=== PATIENT | male | born 1970 | race Hispanic/Latino ===

== ENCOUNTER 2019-05-17 20:04 | Inpatient (IN) | payer OTHER ==
[2019-05-17 23:31] VITALS: BMI 31.6
[2019-05-18] MEDS: Acetaminophen 325 MG TAB PO PRN ×4 (00:55→17:32)
--- NOTE | 2019-05-18 03:45 | HP ---
PRIMARY CARE DOCTOR: The patient has no PCP. CODE STATUS: Full code. TIME OF EVALUATION: 9:30 p.m. CHIEF COMPLAINT: Left-sided weakness and slurred speech. HISTORY OF PRESENT ILLNESS: This is a 48-year-old male patient, past medical history of no significant medical problems, came to the hospital after having left-sided weakness. The symptoms have been present on and off for the past week, however, since 6:00 a.m. today, the symptoms were not improving. Basically, the patient has left-sided weakness and being unable to put on his clothes. The patient has slurred speech, confusion, symptoms were severe. No clear triggers. No alleviating factors. No significant family history of these problems. Symptoms started suddenly at 6:00 a.m. this morning. REVIEW OF SYSTEMS: Unable to fully obtain. The patient is confused. Information has been gathered from the patient and family. CONSTITUTIONAL: The patient has generalized weakness, loss of appetite for the past week. RESPIRATORY: No cough, sputum production, or shortness of breath. CARDIOVASCULAR: No chest pain. GASTROINTESTINAL: No nausea, no vomiting, or abdominal pain. WEB SERVICES PROFESSIONAL: The patient has confusion, left-sided weakness as discussed in HPI. GENITOURINARY: No burning on urination. EXTREMITIES: No leg swelling. All other systems were reviewed and negative except for the findings mentioned above. PAST MEDICAL HISTORY: Negative. FAMILY HISTORY: Negative. PAST SURGICAL HISTORY: Negative. SOCIAL HISTORY: The patient drinks on a daily basis around 10 beers per day. No drug use. No smoking history. No history of delirium tremens in the past. KNOWN ALLERGIES: No known drug allergies. REPORTED MEDICATIONS: None. PHYSICAL EXAMINATION: VITAL SIGNS: On presentation, blood pressure 183/118 with heart rate 95, respiratory rate was 18, temperature 99.3. Pain was 7/10, oxygen saturation was 97% on room air. GENERAL APPEARANCE: The patient is alert, confused, unable to establish a simple conversation, not in acute distress. HEENT: Eyes, normal conjunctivae. Moist oral mucosa. Anicteric. No JVD. RESPIRATORY: Bilateral air entry. No rales. No wheezes. Symmetric expansion. CARDIOVASCULAR: Normal rate, regular rhythm. No murmurs. No gallop. No edema. ABDOMEN: Soft, normal bowel sounds. MUSCULOSKELETAL: Baseline range of motion and strength. SKIN: Warm, intact. No pallor. No rash. No redness. Capillary refill seems to be intact. NEURO: The patient has left-sided weakness, slurred speech, the patient has the slow mentation. PSYCH: Unable to fully explore, suboptimal judgment. IMAGING: EKG was reviewed. The patient has normal sinus rhythm, rate within normal limits. No acute findings for any other specific disease. Brain CT was done. The patient has abnormal area of low attenuation in the left posterior, right parietal lobe which is nonspecific. This is not typical of infarct and although lesion should be excluded, recommended further evaluation with MRI of the brain. The CT [place] [facility] [place] [facility] with contrast showed prominent atherosclerotic calcification in the cavernous portion of both ICAs. The patient appeared to be producing hemodynamically significant stenosis bilaterally, decreased M2 and M3 branches of the right, consistent with right M2 occlusion. LABORATORY DATA: Reviewed. The patient has white count 9.3, hemoglobin 15.6, MCV 88, platelet count 155. Coagulation was negative. Chemistry; sodium 138, potassium 4.0, chloride 101, carbon dioxide 27, anion gap 14, BUN 8, creatinine 0.9, GFR 89, glucose 236. LFTs were negative. CK 22, troponin was mildly elevated at 0.04. Albumin was normal. ASSESSMENT AND PLAN: The patient will be placed in the hospital with following medical problems. 1. Acute new onset left-sided weakness with slurred speech. The patient is very young to have a stroke, it should be atypical. Therefore, another pathologies are being ruled in/out including brain mass. We will do MRI in the morning and further workup will be planned depending on the results. Otherwise, we will continue with stroke protocol and neuro checks frequently. Seizure precautions. 2. The patient has a strong history of alcohol abuse with 8-10 beers on a daily basis. We will watch him for delirium tremens. This might add up more confusing findings to the patient's history who is already presenting with altered mental status from possible mass, something we will need to take into consideration in a couple days for now if delirium tremens symptom appear. 3. Deep venous thrombosis prophylaxis. Job ID: [id number]
[2019-05-18 04:53] LABS: #Lymphocytes 1.9 thou/uL (1.20-3.40); #Monocytes 0.6 thou/uL (0.11-0.59); #Neutrophils 6.2 thou/uL (1.40-6.50); %Basophils 0.1 % (0.0-1.0); %Eosinophils 0.4 % (0.0-10.0); %Lymphocytes 22.1 % (21.0-51.0); %Monocytes 6.3 % (0.0-10.0); %Neutrophils 71.2 % (42.0-75.0); Hemoglobin 15.2 g/dL (14.0-18.0); Mean Corpuscular HGB CONC 33.6 g/dL (32.0-36.0); Mean Corpuscular Volume 89.3 fL (78.0-98.0); Mean Platelet Volume 9.3 fL (7.4-10.4); Platelet Count 146 thou/uL (130-400); RBC Distribution Width 11.7 % (11.5-14.5); Red Blood Cell (RBC) Count 5.06 mill/uL (4.70-6.10); White Blood Cell (WBC) Count 8.7 thou/uL (4.8-10.8)
[2019-05-18 05:17] LABS: Anion Gap 11 mmol/L (10-20); BUN (Urea Nitrogen) 7 mg/dL (8.9-20.6); Calc. Creatinine Clearance 169 mL/min (70-130); Calcium 9.2 mg/dL (7.8-10.44); Carbon Dioxide 24 mmol/L (22-29); Cardiac Risk 4.7 (Less than 4.5); Chloride 98 mmol/L (98-107); Cholesterol 212 mg/dl (< 200 Desired); Estimated GFR-MDRD Greater than 90; Glucose 250 mg/dL (70-105); HDL Cholesterol 45 mg/dL (>60 Neg Risk); LDL Cholesterol, Calculated 136 mg/dL; Potassium 3.4 mmol/L (3.5-5.1); Sodium 130 mmol/L (136-145); Triglycerides 153 mg/dL (Less than 150)
--- NOTE | 2019-05-18 08:14 | PDOC.HOSPP ---
- Subjective Subjective: speech improved, L sided strength improved - Objective Vital Signs & Weight: Vital Signs (12 hours) Temp Pulse Resp BP Pulse Ox 05/18/19 07:54 99.3 F 81 20 176/89 H 98 05/18/19 04:00 100.1 F H 88 16 166/88 H 95 05/17/19 23:00 100.4 F H 88 18 193/95 H 99 Weight Weight 201 lb 9 oz I&O: 05/17/19 05/18/19 05/19/19 06:59 06:59 06:59 Intake Total 480 Output Total 300 Balance 180 Result Diagrams: 05/18/19 04:42 05/18/19 04:42 ROS - Review of Systems All systems: All other ROS were reviewed and found negative. - Medication Medications: Active Medications Generic Name Dose Route Start Last Admin Trade Name Freq PRN Reason Stop Dose Admin Acetaminophen 650 mg 05/18/19 00:29 05/18/19 05:41 Tylenol PO 650 mg Q4H PRN Administration Fever > 101 - Exam Neck: no JVD Heart: RRR, no murmur Respiratory: CTAB, no wheezes, no rales Gastrointestinal: soft, non-tender, normal bowel sounds Extremities: no edema Neurological: hemiplegia Hosp A/P (1) CVA (cerebral vascular accident) Code(s): I63.9 - CEREBRAL INFARCTION, UNSPECIFIED Status: Acute Qualifiers: CVA mechanism: thrombosis Precerebral and cerebral artery: middle cerebral artery Laterality of affected vessel: right Qualified Code(s): I63.311 - Cerebral infarction due to thrombosis of right middle cerebral artery (2) Hyponatremia Code(s): E87.1 - HYPO-OSMOLALITY AND HYPONATREMIA Status: Acute (3) DM type 2 (diabetes mellitus, type 2) Status: Acute Qualifiers: Diabetes mellitus marine drafter insulin use: without care home use Diabetes mellitus complication status: without complication Qualified Code(s): E11.9 - Type 2 diabetes mellitus without complications (4) Dyslipidemia (high LDL; low HDL) Code(s): E78.5 - HYPERLIPIDEMIA, UNSPECIFIED Status: Acute - Plan plan discussed w/ family, PT/OT, DVT proph w/lovenox MRI pending. start ASA, statin. accu/ss/ HgA1c. PT/OT
[2019-05-18 08:24] LABS: Hemoglobin A1c 10.3 % (4.0-6.0)
[2019-05-18] MEDS: Aspirin 325 MG TAB PO SCH (08:33)
[2019-05-18] MEDS ORDERED: Enoxaparin Sodium 40 MG/0.4 ML SYRINGE SC SCH (09:00)
--- NOTE | 2019-05-18 09:29 | MRI ---
BRAIN MRI WITHOUT CONTRAST: Date: 05/18/2019 COMPARISON: None. HISTORY: Left-sided weakness, assess for acute infarction. FINDINGS: Review of the diffusion weighted imaging demonstrates scattered areas of restricted diffusion on the right. This includes foci of restricted diffusion along the lateral margin of the right putamen. There are foci of restricted diffusion involving the periventricular white matter on the right adjace nt to the frontal horn of the right lateral ventricle, likely involving the right caudate head. In addition, there are scattered foci of restricted diffusion present involving the superior lateral asp ect of the right frontal lobe and right frontoparietal region. The gradient echo imaging demonstrates linear areas of blooming artifact in the superior lateral right frontal region and the p osterior right frontoparietal region suggesting small volume hemorrhage associated with infarctions in this region. Correlation with CT examination is suggested. There is no evidence for midline shift or mass effect. The arterial flow voids at the axial level of the skull base appear grossly unremarkable on the T2-we ighted imaging. The imaged paranasal sinuses and mastoid air cells appear grossly unremarkable. There is a focus of restricted diffusion consistent with acute infarction also noted within the poste rior temporal occipital region on the right. The areas of acute infarction demonstrate increased T2 signal on the basis of cytotoxic edema. There is an old lacunar infarction involving the periventricular white matter/deep white matter on th e left. Regional bone marrow signal intensity appears within normal limits. IMPRESSION: Multifocal infarction on the right as detailed above. Some of the areas of acute infarction demonstra te linear blooming artifact suggesting small volume associated hemorrhage. Recommend correlation with CT examination. CODE T Transcribed Date/Time: 05/18/2019 9:57 AM
[2019-05-18] MEDS: Amlodipine 5 MG TAB PO SCH (12:21)
--- NOTE | 2019-05-18 15:46 | RAD ---
PA AND LATERAL VIEWS CHEST: HISTORY: Fever. FINDINGS: The heart size is borderline. No focal areas of consolidation, pneumothoraces, thuy pulmonary edema , or pleural effusions are seen. There are degenerative changes in the spine. IMPRESSION: No acute process. POS: OFF
--- NOTE | 2019-05-18 16:17 | CON ---
DATE OF CONSULTATION: 05/18/2019 REQUESTING PHYSICIAN: Guille Maria MD CHIEF COMPLAINT: Headache and left body paresthesias. HISTORY OF PRESENT ILLNESS: The patient is a 48-year-old man, who essentially is Lithuanian-speaking only, one of his family members who fluently bilingual assisted in translation and provided some of the history. The patient essentially never goes to the doctor, even though he has been told in the past that he has "prediabetes." He has had at least 3 episodes over the last week or so of left body paresthesias, at least one of which was associated with some left arm weakness as he dropped a soft drink that he was holding in that hand. Episodes on Thursday of last week in this past Thursday, lasted for an hour or two and more associated with left arm paresthesias. On Thursday, he also had left lower extremity paresthesias. Starting early yesterday morning, he had a bad headache and yesterday afternoon when he went to take some Tylenol, he choked on a pill in the water, which he was swallowing it in addition having left-sided paresthesias and his family insisted he go to the hospital. Today, the patient feels that he is back to about baseline, although his family agrees that his left face seems to be drooping a little bit. PAST MEDICAL HISTORY: As above. MEDICATIONS: He takes no medications on a regular basis. ALLERGIES: HE HAS NO KNOWN DRUG ALLERGIES. SOCIAL HISTORY: Estimates of his daily drinking range from 6 to over 10 alcoholic beverages a day. His family indicates that he has never had seizures or other overt signs of withdrawals, but that he does start to get rather agitated if he goes 3 days without alcohol. He denies smoking. REVIEW OF SYSTEMS: Negative for any previous such episodes. Negative for any chest pain or shortness of breath. PHYSICAL EXAMINATION: GENERAL: He is in no distress. HEENT: There is some white flattening of the left nasolabial fold and downward droop of the left corner of his mouth. EXTREMITIES: Right arm testing was difficult because of some discomfort associated with an antecubital IV, but upper and lower extremity strength seemed grossly normal. NECK: He has bilateral carotid bruits. CHEST: Clear to auscultation. He has a regular rate and rhythm. ABDOMEN: Soft and nontender. VITAL SIGNS: His last temperature around noon time today was 99.7. He had a temperature of 100.4 on admission to the [facility]. Heart rates have been in the 70s and 80s. Blood pressure has been about 175 to 195 over about 80 to 95. LABORATORY EXAM: Electrolytes were normal. Glucose was 226, BUN 8, creatinine 0.91. Followup chemistries this morning after yesterday's CTA, the BUN of 7 and creatinine 0.7. LFTs were normal. Calcium was 8.9, albumin 4.1, CK-MB was 0.8, troponin was 0.040. Triglycerides on fasting labs this morning were 153, cholesterol was 212 with LDL 136 and HDL 45. Hemoglobin A1c was 10.3. Hemoglobin was 15.6, hematocrit 46.2, MCV 88.1, white count was 8.3, platelets 155,000. PT was 14.1, INR 1.1, and PTT 30.8. His head CT report describes some low attenuation in the posterior right parietal lobe that was felt to be atypical for infarct. MRI showed right multifocal right-sided infarcts in the right putamen, periventricular white matter adjacent frontal horn of the lateral ventricle, inferolateral right frontal lobe in the right frontoparietal region and changes suggesting some nesha-infarct hemorrhage as well as an area in the posterior temporal occipital region on the right with some edema. CT angiography shows some plaque in his suggestive of bilateral carotid stenosis in the cervical region. The report also describes borderline stenosis in both ICA in the cavernous portion, although that is much harder for me to appreciate the CTA has several areas that are affected by motion artifact. There are some of the pictures that were in good focus and highly suggestive of significant stenosis, other areas that are a little blurry and then there are other areas that are just absolutely uninterpretable. IMPRESSION AND RECOMMENDATIONS: In all likelihood, the patient has had right-sided infarcts due to right-sided cervical carotid disease. He may have asymptomatic left-sided disease as some examiner's elicited a history of dysarthria. It is even conceivable that he had speech center TIAs rather than just simply some oropharyngeal or mental status cause of slurred speech. The patient's baseline BUN and creatinine were normal, and a followup study the day after CTA also was normal. I think the most straightforward way to address this rather than trying to do invasive arteriography or rely on suboptimal studies just to simply repeat the CTA when presumably the patient is better able to cooperate with the exam. Carotid ultrasonography may also provide complimentary information to fill in some of the gaps, it may be left by his CT studies. The patient's blood sugars will need to be brought under better control. I would like to make sure that he is not getting an infectious process and I would be desirable to avoid DTs given the suggestion of nesha-infarct hemorrhage and edema. It is probably worthwhile giving the patient some time to heal from his stroke before subjecting him to endarterectomy should imaging studies point that way. Job ID: [id number]
--- NOTE | 2019-05-18 17:03 | ULT ---
BILATERAL CAROTID DUPLEX ULTRASOUND: 05/18/19 HISTORY: Carotid bruits. CVA. TECHNIQUE: Hairston scale ultrasound with color flow and spectral Doppler imaging of the extracranial carotid artery system is performed bilaterally. There is plaque formation on both sides. Flow could not be obtained in the distal right ICA. The peak systolic velocity in the right ICA measures 178 cm/s with an end diastolic velocity of 70 cm /s and systolic ratio of 2.0. The peak systolic velocity in the left ICA measures 76 cm/s with an end diastolic velocity of 37 cm/s and systolic ratio of 1.0. Flow in both vertebral arteries remains antegrade. IMPRESSION: Moderate (50-69%) stenosis involving the right ICA. POS: OFF
[2019-05-18] MEDS: Atorvastatin Calcium 40 MG TAB PO SCH (21:28)
[2019-05-19] MEDS: hydrALAZINE 20 MG/ML VIAL SLOW IVP PRN ×3 (00:17→20:13)
[2019-05-19] MEDS ORDERED: HumaLOG 300 UNITS/3 ML VIAL SC PRN (02:53)
[2019-05-19] MEDS ORDERED: Dextrose 5% in Water 1,000 ML IV PRN (02:53)
[2019-05-19] MEDS ORDERED: Dextrose 50% Abboject 50 ML SYRINGE SLOW IVP PRN (02:53)
[2019-05-19] MEDS: Acetaminophen 325 MG TAB PO PRN ×2 (04:07→08:52)
[2019-05-19 05:56] LABS: #Eosinphils 0.1 thou/uL (0.0-0.7); #Lymphocytes 2.3 thou/uL (1.20-3.40); #Monocytes 0.6 thou/uL (0.11-0.59); #Neutrophils 4.4 thou/uL (1.40-6.50); %Basophils 0.2 % (0.0-1.0); %Lymphocytes 31.5 % (21.0-51.0); %Monocytes 7.8 % (0.0-10.0); %Neutrophils 59.4 % (42.0-75.0); Hemoglobin 16.7 g/dL (14.0-18.0); Mean Corpuscular HGB CONC 35.7 g/dL (32.0-36.0); Mean Corpuscular Volume 89.7 fL (78.0-98.0); Mean Platelet Volume 9.9 fL (7.4-10.4); Platelet Count 143 thou/uL (130-400); RBC Distribution Width 11.6 % (11.5-14.5); Red Blood Cell (RBC) Count 5.22 mill/uL (4.70-6.10); White Blood Cell (WBC) Count 7.4 thou/uL (4.8-10.8)
[2019-05-19] MEDS: HumaLOG 300 UNITS/3 ML VIAL SC PRN ×3 (06:05→17:24)
[2019-05-19 06:14] LABS: Anion Gap 11 mmol/L (10-20); BUN (Urea Nitrogen) 8 mg/dL (8.9-20.6); Calc. Creatinine Clearance 157 mL/min (70-130); Calcium 9.7 mg/dL (7.8-10.44); Carbon Dioxide 27 mmol/L (22-29); Chloride 99 mmol/L (98-107); Estimated GFR-MDRD Greater than 90; Glucose 216 mg/dL (70-105); Potassium 3.8 mmol/L (3.5-5.1); Sodium 133 mmol/L (136-145)
--- NOTE | 2019-05-19 08:20 | CT ---
CT arteriogram neck with IV contrast and 3-D imaging HISTORY: Abnormal sonogram. Carotid stenosis. Vascular disease. CVA. FINDINGS: Normal branching of the great vessels at the aortic arch with mild arterial calcification. Good flow into each carotid and vertebral system. At the right carotid bifurcation, there is mild calcified and prominent noncalcified plaque. Over a l ength of 1.5 cm, there is very severe narrowing of the proximal to mid right cervical internal carotid artery, greater than 90%. Remainder of the internal carotid artery shows good flow and calibe r. On the left, there is mild calcified and moderate noncalcified plaque within the proximal ICA. Stenos is is less than 50%. IMPRESSION: Atherosclerosis with significantly severe stenosis of the proximal right internal carotid artery, estimated at greater than 90%. Mild stenosis on the left, less than 50%.
--- NOTE | 2019-05-19 08:29 | PDOC.HOSPP ---
- Subjective Subjective: MACHUCA, still weak on left side - Objective Vital Signs & Weight: Vital Signs (12 hours) Temp Pulse Resp BP Pulse Ox 05/19/19 07:37 98.5 F 81 18 183/91 H 97 05/19/19 04:00 98.3 F 78 18 154/91 H 97 05/19/19 01:23 171/80 H 05/19/19 00:17 83 05/18/19 23:47 99.0 F 83 18 184/88 H 97 05/18/19 21:30 97 Weight Weight 201 lb 9 oz I&O: 05/18/19 05/19/19 05/20/19 06:59 06:59 06:59 Intake Total 480 720 Output Total 300 Balance 180 720 Result Diagrams: 05/19/19 05:02 05/19/19 05:02 Additional Labs: Accuchecks 05/19/19 05:56 POC Glucose 205 H Radiology Reviewed by me: Yes (R ICA stenosis) ROS - Review of Systems All systems: All other ROS were reviewed and found negative. - Medication Medications: Active Medications Generic Name Dose Route Start Last Admin Trade Name Freq PRN Reason Stop Dose Admin Acetaminophen 650 mg 05/18/19 00:29 05/19/19 04:07 Tylenol PO 650 mg Q4H PRN Administration Fever > 101 Amlodipine Besylate 2.5 mg 05/18/19 09:00 05/18/19 12:21 Norvasc PO 2.5 mg DAILY JOSE Administration Aspirin 325 mg 05/18/19 09:00 05/18/19 08:33 Aspirin PO 325 mg DAILY JOSE Administration Atorvastatin Calcium 40 mg 05/18/19 21:00 05/18/19 21:28 Lipitor PO 40 mg HS JOSE Administration Hydralazine HCl 10 mg 05/18/19 23:42 05/19/19 00:17 Apresoline SLOW IVP 10 mg Q4H PRN Administration BP 160/100 Insulin Human Lispro 0 units 05/19/19 02:53 05/19/19 06:05 Humalog SC 3 unit .MILD SLIDING SCALE PRN Administration Mild Correctional Scale - Exam Neck: no JVD Heart: RRR, no murmur Respiratory: CTAB Gastrointestinal: soft, non-tender, normal bowel sounds Extremities: no edema Neurological: facial droop, hemiplegia Hosp A/P (1) CVA (cerebral vascular accident) Code(s): I63.9 - CEREBRAL INFARCTION, UNSPECIFIED Status: Acute Qualifiers: CVA mechanism: thrombosis Precerebral and cerebral artery: middle cerebral artery Laterality of affected vessel: right Qualified Code(s): I63.311 - Cerebral infarction due to thrombosis of right middle cerebral artery (2) Hyponatremia Code(s): E87.1 - HYPO-OSMOLALITY AND HYPONATREMIA Status: Acute (3) DM type 2 (diabetes mellitus, type 2) Status: Acute Qualifiers: Diabetes mellitus mcfp insulin use: without intermodal truck driver use Diabetes mellitus complication status: without complication Qualified Code(s): E11.9 - Type 2 diabetes mellitus without complications (4) Dyslipidemia (high LDL; low HDL) Code(s): E78.5 - HYPERLIPIDEMIA, UNSPECIFIED Status: Acute (5) Carotid stenosis Code(s): I65.29 - OCCLUSION AND STENOSIS OF UNSPECIFIED CAROTID ARTERY Status : Acute Qualifiers: Laterality: right Qualified Code(s): I65.21 - Occlusion and stenosis of right carotid artery - Plan MACHUCA, adverse neuro findings. CT brain, hold asa.Uncottrolled DM 2- cont accu/ss/ start metformin in 2-3 days{ post iv contrast}
[2019-05-19] MEDS: Amlodipine 5 MG TAB PO SCH (08:53)
[2019-05-19] MEDS: Aspirin 325 MG TAB PO SCH ×2 (10:29→12:51)
--- NOTE | 2019-05-19 13:09 | CT ---
CT BRAIN NONCONTRAST: DATE: 05/19/19 TIME: 1152 HOURS HISTORY: 48-year-old male with acute cerebral infarction. Possibility of hemorrhage. COMPARISON: Noncontrast MRI of 05/18/19. FINDINGS: There is effacement of a few sulcal markings at the right upper cerebral convexity, associated with s ubtle, mild hypodensity and mild hyperdensity. Some of this represents mild cortical edema. Review of the gradient echo sequence of 05/18/19 MRI demonstrates curvilinear, gyriform blooming artifact in t his area, including right middle frontal gyrus and right postcentral gyrus of the upper frontal and p arietal lobes, respectively. The morphology is consistent with clot within superficial cortical veins . Therefore, the small right parieto-occipital cerebral cortical infarction demonstrated on yesterday 's MRI (and demonstrated by subtle heterogeneous slight hypodensity on today's CT) would be consisten t with a venous infarction. There is a linear-shaped old lacunar infarction of the left basal ganglia that also involves a small portion of the left caudate body. There is a tiny old lacunar infarction in the head of the right cau date nucleus. Ventricles are normal in size and configuration. No mass effect or midline shift. Many of the lateral mid right parietal gyri have superficial cortical subtle mild hyperdensities, whi ch is questionable for petechial hemorrhage. No definite hemorrhage was demonstrated in this location on yesterday's MRI. No other potential hemorrhage is visualized. Calvarium is intact. IMPRESSION: 1. Findings at the right upper cerebral convexity that are evidence for superficial cortical venous thrombosis. 2. Small focus of edema at right parieto-occipital junction is probably an acute/subacute venous inf arction. However, follow-up with MRI of the brain with and without contrast is recommended in 3 months to rule out the possibility of an unrelated neoplasm in this location as an alternative diagnosis. 3. Subtle finding of gyriform, thin, mild cortical hyperdensity of right parietal region, questionab le for petechial superficial cortical hemorrhage. 4. No evidence of large intracranial hemorrhage. 5. Old lacunar infarctions of left corpus striatum and right caudate head. 6. No mass effect or midline shift. JN Zoey POS: CET
--- NOTE | 2019-05-19 19:05 | PDOC.EVN ---
Event Note - Event Note Event Note: no evedense for ICH post CVA on CT- cont ASA
[2019-05-19] MEDS: Atorvastatin Calcium 40 MG TAB PO SCH (20:12)
--- NOTE | 2019-05-19 23:17 | CON ---
DATE OF CONSULTATION: 05/19/2019 CONSULTING PHYSICIAN: Hospitalist Services. IMPRESSION: 1. Right MCA infarct. 2. Right internal carotid stenosis of 90%. PLAN: Maximum medical therapy until endarterectomy was performed in a month. HISTORY OF PRESENT ILLNESS: Mr. Rizzo is a 48-year-old man, who came in with complaints of left-sided weakness and numbness. His symptoms have steadily improved since admission. His workup revealed a high-grade stenosis of the left internal carotid artery around 90%. He was re-imaged today due to some fluctuating symptoms. There was some minimal edema associated with the area of infarct. CTA continued to show an 80% to 90% right carotid stenosis. CT surgery is elected to hold off on endarterectomy for about a month. PAST MEDICAL HISTORY: Otherwise negative. SOCIAL HISTORY: Positive for alcohol use. FAMILY HISTORY: Noncontributory. MEDICATIONS: Medication list was reviewed. REVIEW OF SYSTEMS: 10-system review of systems is otherwise negative. PHYSICAL EXAMINATION: GENERAL: He is mildly overweight, middle-aged man, lying in bed, in no acute distress. VITAL SIGNS: Have been stable with a pulse rate of 94 and sinus rhythm. HEENT: Pupils are equal and reactive. Conjunctivae clear. Oropharynx clear. NECK: Supple. EXTREMITIES: No cyanosis or edema. NEUROLOGIC: He was alert and cooperative. Cranial nerves appear to be intact other than subjective sensory loss on the left. Motor exam showed good strength in all 4 extremities. There was subjective sensory loss in the left arm and leg. He can walk independently. No abnormal movements were seen. SUMMARY: Middle-aged man with high-grade carotid stenosis and subsequent thromboembolic event, which symptomatically is improving. I agree with the game plan. Job ID: [id number]
[2019-05-20 05:07] LABS: #Eosinphils 0.1 thou/uL (0.0-0.7); #Lymphocytes 2.2 thou/uL (1.20-3.40); #Monocytes 0.6 thou/uL (0.11-0.59); #Neutrophils 4.8 thou/uL (1.40-6.50); %Basophils 0.2 % (0.0-1.0); %Eosinophils 0.9 % (0.0-10.0); %Lymphocytes 28.8 % (21.0-51.0); %Monocytes 7.4 % (0.0-10.0); %Neutrophils 62.8 % (42.0-75.0); Hemoglobin 16.3 g/dL (14.0-18.0); Mean Corpuscular HGB CONC 34.3 g/dL (32.0-36.0); Mean Corpuscular Hemoglobin 30.7 pg (27.0-31.0); Mean Corpuscular Volume 89.5 fL (78.0-98.0); Mean Platelet Volume 9.4 fL (7.4-10.4); Platelet Count 148 thou/uL (130-400); RBC Distribution Width 11.7 % (11.5-14.5); Red Blood Cell (RBC) Count 5.31 mill/uL (4.70-6.10); White Blood Cell (WBC) Count 7.7 thou/uL (4.8-10.8)
[2019-05-20 05:20] LABS: Anion Gap 13 mmol/L (10-20); BUN (Urea Nitrogen) 11 mg/dL (8.9-20.6); Calc. Creatinine Clearance 157 mL/min (70-130); Calcium 9.5 mg/dL (7.8-10.44); Carbon Dioxide 23 mmol/L (22-29); Chloride 101 mmol/L (98-107); Estimated GFR-MDRD Greater than 90; Glucose 195 mg/dL (70-105); Potassium 3.5 mmol/L (3.5-5.1); Sodium 133 mmol/L (136-145)
[2019-05-20] MEDS: HumaLOG 300 UNITS/3 ML VIAL SC PRN ×2 (05:21→11:23)
[2019-05-20] MEDS: Acetaminophen 325 MG TAB PO PRN (07:18)
[2019-05-20] MEDS ORDERED: Aspirin 81 mg Enteric Coated Tablet PO SCH (09:00)
[2019-05-20] MEDS ORDERED: Clopidogrel Bisulfate 75 MG TAB PO SCH (09:00)
[2019-05-20] MEDS: Amlodipine 5 MG TAB PO SCH (09:08)
[2019-05-20 11:29] VITALS: BP 144/72; TEMP 98
--- NOTE | 2019-05-21 04:50 | DIS ---
DATE OF ADMISSION: 05/17/2019 DATE OF DISCHARGE: 05/20/2019 DIAGNOSES AT THE TIME OF DISCHARGE: 1. Right MCA infarction. 2. Right internal carotid stenosis of 90%. 3. New onset diabetes mellitus. 4. Hyponatremia, improved. 5. Hyperlipidemia. CONSULTANTS: 1. Guille Maria MD, Neurology Service. 2. Raad Leon MD, Cardiovascular Surgery. HOSPITAL COURSE: The patient is a 48-year-old male, who was admitted to the hospital with left-sided weakness and slurred speech. He did not have any significant past medical history of any problems. Apparently, he had symptoms on and off for approximately 1 week but since at some point, though symptoms were not improving, they were associated with some slurred speech, confusion, and patient was evaluated in the emergency room. His white count was 9.3, hemoglobin 15.6. Coagulation was negative. Sodium of 138, potassium 4.0, chloride 101, CO2 of 27, BUN 8, creatinine 0.9. His glucose was elevated at 236. LFTs were negative. CK was 22. Troponin was mildly elevated at 0.04. His EKG showed normal sinus rhythm, no acute findings. Brain CT was done and show abnormal area of the low attenuation in the left posterior right parietal lobe, which was nonspecific. This was not typical of infarct and followup evaluation with MRI of the brain was recommended. CT of the [place] angiogram was done with contrast, which showed prominent atherosclerotic calcification in the cavernous portion of both ICAs. There was a significant hemodynamic stenosis bilaterally. Apparently, the patient drinks 8-10 beers a day. MRI of the brain was performed and showed multifocal infarction on the right, since some of the areas of acute infarction demonstrated linear blooming artifacts suggesting small volume associated hemorrhage. CT of the brain was recommended, it was done and showed: 1. Findings at the right upper cerebral convexity that are evidence for superficial cortical venous thrombosis. 2. Small focus of edema at right parieto-occipital junction, which probably was an acute/subacute venous infarction. 3. Subtle findings of gyriform thin mild cortical hyperdensity of right parietal region, questionable for petechial superficial cortical hemorrhage. 4. No evidence of large intracranial hemorrhage. 5. Old lacunar infarction of the left corpus striatum and right caudate head. 6. No mass-effect or midline shift. Chest x-ray did not show any acute abnormalities. Carotid Doppler showed moderate 50% to 69% stenosis involving the right ICA and subsequently, CT angiogram was done which showed atherosclerosis with significantly severe stenosis of the proximal right internal carotid artery estimated at greater than 90% along with mild stenosis on the left less than 50%. The patient was seen by Dr. Maria for Neurology evaluation and by Dr. Leon for cardiovascular evaluation, and both of them agree to continue double anti-platelet therapy until he is going to have his endarterectomy done on the right side in 1 month. During this hospitalization, his hemoglobin A1c came back at 10.3, so he had glucose ranging from 177 to 213 during this hospitalization since he had some IV contrast, he was not started on any oral medications and he will be started on metformin for a couple of days after he is discharged from the hospital since he had IV contrast yesterday for his CT angiogram of the neck. His sodium is improved at 133 today. His glycemia is down to 177, with insulin coverage of Accu-Cheks before meals and at bedtime. He was seen by PT and OT, and speech therapist. They recommend to continue his treatments on an outpatient basis. He was seen and examined before he was discharged home. His blood pressure is 176/84, pulse is 80, temperature is 98.1, respirations 18, O2 saturation 95% on room air. He still has weakness in his left upper and lower extremity. He has left facial droop, but he is able to ambulate with some assistance. MEDICATIONS: At the time of discharge: 1. Metformin 500 mg twice a day. 2. Clopidogrel 75 mg once a day. 3. Atorvastatin 40 mg at bedtime. 4. Aspirin 81 mg once a day. 5. Amlodipine 2.5 mg once a day. FOLLOWUP: He is going to follow up with his primary care physician in 1 week. He will see Dr. Maria in [address] Leon, cardiovascular surgeon in 1 month for his right endarterectomy. ACTIVITIES: As tolerated. DIET: He will stay on 2000 calories ADA diet. FOLLOWUP: He will continue on outpatient basis with rehabilitation with PT, OT, and Speech. TIME SPENT: Discharge time is less than 30 minutes. Job ID: [id number]
== END 2019-05-20 12:58 | disposition home or self-care (01) | DRG 65 ==
LOC: ERS 20:04 → 2SE 20:42 → OBSVTOIN 20:42
PROVIDERS: ADMIT Hospitalist; ATTEND Hospitalist
DX: I63.311 Cerebral infarction due to thrombosis of right middle cerebral artery (principal); G81.94 Hemiplegia, unspecified affecting left nondominant side; E87.1 Hypo-osmolality and hyponatremia; R47.81 Slurred speech; F10.11 Alcohol abuse, in remission; E11.9 Type 2 diabetes mellitus without complications; E78.5 Hyperlipidemia, unspecified; I65.21 Occlusion and stenosis of right carotid artery
CPT/HCPCS: 36415; 36416; 70450; 70498; 70551; 71046; 80048; 80061; 83036; 85025; 90471; 90732; 93306; 93880; 96365; 96366; G0009; J0360

== ENCOUNTER 2019-07-27 16:00 | Inpatient (IN) | payer BC ==
[2019-07-27 16:58] LABS: Mean Corpuscular HGB CONC 35.9 g/dL (32.0-36.0); Mean Corpuscular Hemoglobin 32.2 pg (27.0-31.0); Mean Corpuscular Volume 89.9 fL (78.0-98.0); Mean Platelet Volume 9.6 fL (7.4-10.4); Platelet Count 149 thou/uL (130-400); RBC Distribution Width 11.9 % (11.5-14.5); Red Blood Cell (RBC) Count 4.35 mill/uL (4.70-6.10); White Blood Cell (WBC) Count 7.8 thou/uL (4.8-10.8)
[2019-07-27 17:02] LABS: INR-International Normal Ratio 1.1; Prothrombin Time 13.9 SEC (12.0-14.7)
[2019-07-27 17:34] LABS: ALT (SGPT) 29 U/L (8-55); AST (SGOT) 25 U/L (5-34); Albumin 4.6 g/dL (3.5-5.0); Alkaline Phosphatase 81 U/L (40-110); Anion Gap 15 mmol/L (10-20); BUN (Urea Nitrogen) 15 mg/dL (8.9-20.6); Bilirubin, Direct 0.4 mg/dL (0.1-0.3); Bilirubin, Total 0.7 mg/dL (0.2-1.2); Calc. Creatinine Clearance 0 mL/min (70-130); Calcium 10.2 mg/dL (7.8-10.44); Carbon Dioxide 24 mmol/L (22-29); Chloride 104 mmol/L (98-107); Estimated GFR-MDRD Greater than 90; Glucose 112 mg/dL (70-105); Potassium 3.8 mmol/L (3.5-5.1); Protein, Total 7.7 g/dL (6.0-8.3); Sodium 139 mmol/L (136-145)
[2019-07-28] MEDS ORDERED: Fentanyl 100 MCG/2 ML VIAL ONE ×2 (06:35→10:41)
[2019-07-28] MEDS ORDERED: Midazolam HCl 2 mg/2 ml Vial ONE (06:35)
[2019-07-28] MEDS ORDERED: Heparin 5,000 UNITS/ML VIAL ONE (06:38)
[2019-07-28] MEDS ORDERED: Protamine Sulfate 50 MG/5 ML VIAL ONE (06:38)
[2019-07-28] MEDS ORDERED: Ondansetron HCl/PF 4 MG/2 ML Vial IVP PRN (07:59)
[2019-07-28] MEDS ORDERED: Labetalol HCl 100 MG/20 ML VIAL ONE (10:19)
[2019-07-28] MEDS ORDERED: Dextrose 50% Abboject 50 ML SYRINGE SLOW IVP PRN (10:20)
[2019-07-28] MEDS ORDERED: Dextrose 5% in Water 1,000 ML IV PRN (10:20)
[2019-07-28] MEDS ORDERED: Insulin Regular 300 UNITS/3 ML VIAL SC PRN (10:20)
[2019-07-28] MEDS ORDERED: Promethazine HCl 25 MG/ML VIAL IM PRN (10:21)
[2019-07-28] MEDS ORDERED: Ondansetron PF 4 MG/2 ML Vial IVP PRN (10:21)
[2019-07-28] MEDS ORDERED: Acetaminophen 325 MG TAB PO PRN (10:21)
[2019-07-28] MEDS ORDERED: HYDROcodone/Acetaminophen 5/325 mg Tablet PO PRN ×2 (10:21)
[2019-07-28] MEDS ORDERED: Ketorolac Tromethamine 30 MG/ML VIAL ONE (10:22)
[2019-07-28] MEDS ORDERED: Rocuronium Bromide 10 MG/ML (10ML VIAL) ONE (10:22)
[2019-07-28] MEDS ORDERED: Heparin 10,000 UNITS/ 10 ML VIAL ONE (10:22)
[2019-07-28] MEDS ORDERED: Lidocaine 1% PF 5 ML VIAL ONE (10:22)
[2019-07-28] MEDS ORDERED: ePHEDrine 50 MG/ML VIAL ONE (10:22)
[2019-07-28] MEDS ORDERED: PHENYLEPHRINE-NS 100 MCG/ML 10 ML SYRINGE ONE (10:22)
[2019-07-28] MEDS ORDERED: Ondansetron PF 4 MG/2 ML Vial ONE (10:22)
[2019-07-28] MEDS ORDERED: PROPOFOL 200 MG/20 ML VIAL ONE (10:22)
[2019-07-28] MEDS ORDERED: Dexamethasone 20 MG/5 ML VIAL ONE (10:22)
--- NOTE | 2019-07-28 11:53 | OP ---
DATE OF PROCEDURE: 07/28/2019 PROCEDURE PERFORMED: Right carotid endarterectomy with bovine pericardial patch angioplasty. PREOPERATIVE DIAGNOSIS: Symptomatic right carotid stenosis. POSTOPERATIVE DIAGNOSIS: Symptomatic right carotid stenosis. ANESTHESIA: General endotracheal anesthesia. INDICATIONS FOR PROCEDURE: The patient is a 48-year-old man, who about a month ago had a crescendo pattern of TIAs culminating in right hemispheric CVA, associated with some nesha-infarct edema. It was opted to maintain him on aspirin and Plavix for a month and then electively readmit him for endarterectomy of a high-grade right carotid stenosis. FINDINGS: Extensive soft plaque at the carotid bulbs, extending several centimeters into the internal carotid artery well beyond the level of the hypoglossal nerve. There was an associated subtotal stenosis, good ICA backbleeding. Preshunt clamp time, 6 minutes. Shunt time, 37 minutes. Post-shunt clamp time, 3 minutes. DESCRIPTION OF PROCEDURE: After informed consent was obtained, the patient was taken to the operating room, placed in supine position on the operating table. After the induction of general anesthesia, the patient's neck was extended and rotated towards the left. His right neck was then prepped and draped in sterile fashion. An oblique incision was made in a skin crease on the neck using a scalpel and electrocautery. The dissection was carried through the subcutaneous tissue and platysma, anterior medial to the sternocleidomastoid muscle and internal jugular vein. The common carotid artery was dissected free from the sheath and the vagus nerve and looped with a vessel loop. The dissection was carried cephalad. The facial vein was ligated and divided. The carotid bifurcation was identified. The external carotid artery was looped with a vessel loop and the dissection was carried distally. The ansa cervicalis was a rather large nerve at first mimicking the vagus in its large size and very parallel course to the carotid, although it was anterior and lateral. The vagus was identified more posteriorly, it was quite large. The ansa was compressed with a forceps, resulting in contraction of the strap muscles, thus confirming its identity. It was divided close to where it ran into the hypoglossal nerve that along with ligation and division of the sling vessels were necessary to adequately expose the internal carotid artery as the extent of the palpable plaque went well beyond the level of the hypoglossal. The hypoglossal was extensively mobilized to facilitate that exposure as well. After heparin had circulated, the internal carotid, common carotid, and external carotid systems were sequentially occluded. A longitudinal arteriotomy was made in the distal common carotid artery and extended proximally and distally with Self scissors. Plaque was teased off the vessel wall at the level of the bulb using the tip of the Self scissors, and then an elevator was used to develop the endarterectomy plane. It broke off distally with a fairly good edge. It was transected at the common carotid level and everted from the external carotid system. The endarterectomy bed was forcefully irrigated, paying particular attention to the distal feather and proximal transection points. Minimal tailoring of the distal feather was required and intraluminal carotid shunt was inserted first distally in the internal carotid and then proximally in the common carotid, aspirating on the side port of the shunt before allowing antegrade flow through it into the internal carotid system. Although, the internal carotid artery was large enough and backbleeding was brisk enough to require the use of a shunt clamp to control bleeding around the shunt. Because of the difficulties in exposure of the vessel distally, it was opted to use bovine pericardial patch for closure, anticipating that some of the difficulties with exposure would be such that augmenting the caliber of the vessel with the patch would help offset suture placement in the bill moore's slough vessel. A bovine pericardial patch was brought to the field and rinsed. It was oriented so that the rough surface would be external and then, smooth shiny surface would be internal. 5-0 Prolene suture was then used to anastomose that patch to the vessel wall as an onlay patch. With about 1 cm of suture line left, a vessel loop was placed around the origin of the internal carotid artery. The shunt was clamped and removed and vascular control reestablished on the internal and common carotid arteries with the vessel loops. The remaining suture line was completed. The vessels were allowed to forward and backbleed to allow for any air or residual debris to flush out the arteriotomy or into the external carotid system. The suture line was secured and the vascular controls were released, first allowing antegrade flow into the external carotid system and then into the internal carotid. The suture line was inspected for hemostasis. There was bleeding coming from the distal apex. At first examination, it appeared to represent an area where there was inadequate apposition of the patch with the vessel wall, but additional [id number] sutures there did not completely resolve the bleeding even when the carotid was re-occluded to facilitate clearance of the blood and accurate suture placement. With backbleeding from the external carotid system, there was sufficient bleeding to identify an area just distal to the apex in the bill moore's slough vessel that was controlled with a [id number] 7-0 Prolene. Protamine had also been administered after the attempted repair under re-clamping had been done. This facilitated resolution of much of the oozing to allow for identification of the very distal bleeding point in the bill moore's slough vessel that was controlled with 7-0 Prolene. With that brought under control, the wound was packed off with Surgicel and gauze, and after several minutes, the Surgicel was still dry. The platysma was then reapproximated with running 3-0 Vicryl and the skin was closed with a running 5-0 Vicryl subcuticular suture and Steri-Strips. The wound was dressed. The patient was awakened and extubated in the operating room, moving all extremities to command. Job ID: [id number]
[2019-07-28] MEDS: Sodium Chloride 0.9% 1,000 ML IV SCH ×2 (12:20→21:06)
[2019-07-28 15:41] VITALS: BMI 29.0
[2019-07-28] MEDS ORDERED: FLU VACC QS2019-20(6MOS UP)/PF 60 MCG/0.5 ML SYRINGE IM ONE (16:00)
[2019-07-28] MEDS ORDERED: hydrALAZINE 20 MG/ML VIAL SLOW IVP PRN (18:54)
[2019-07-28] MEDS ORDERED: Atorvastatin Calcium 40 MG TAB PO SCH (21:00)
[2019-07-29 04:19] VITALS: TEMP 98.3
[2019-07-29] MEDS: Sodium Chloride 0.9% 1,000 ML IV SCH (06:38)
[2019-07-29 07:46] VITALS: BP 162/94
[2019-07-29] MEDS ORDERED: metFORMIN 500 MG TAB PO SCH (09:00)
[2019-07-29] MEDS ORDERED: Multivit, Chewable SF 1 TAB PO SCH (09:00)
[2019-07-29] MEDS ORDERED: Amlodipine 10 MG TAB PO SCH (09:00)
[2019-07-29] MEDS ORDERED: GLUCOSAMINE SULFATE 750 MG PO SCH (09:00)
[2019-07-29] MEDS ORDERED: Aspirin 81 mg Enteric Coated Tablet PO SCH (09:00)
--- NOTE | 2019-07-29 09:52 | DIS ---
DATE OF ADMISSION: 07/28/2019 DATE OF DISCHARGE: 07/29/2019 PRINCIPAL DIAGNOSIS: Symptomatic right carotid stenosis. PROCEDURES PERFORMED: Right carotid endarterectomy, 07/28/2019. HISTORY OF PRESENT ILLNESS AND HOSPITAL COURSE: The patient is a 48-year-old man, who had crescendo pattern of right hemispheric TIAs culminating in an episode associated with left arm weakness and he was found to have had a right hemispheric stroke with some suggestion of nesha-infarct hemorrhage or edema. He had mild left carotid disease, but high-grade stenosis in the right carotid artery. He was started on aspirin and Plavix, and after a month, the Plavix was discontinued and he was admitted for endarterectomy. The lesion extended several centimeters into the internal carotid artery requiring extensive mobilization of the hypoglossal nerve to allow for adequate distal exposure. He had uncomplicated postoperative course with only minimal problems with hypertension that were easily controlled with p.r.n. medications. He has some mild rightward deviation of the tip of his tongue, but no overt abnormalities in the quality of his speech or any problem swallowing. His wound has no significant swelling. He is able to move all extremities normally. He is to be discharged home now to resume his home medications with the exception of the Plavix and I have written him the prescription for Vicodin for pain. I will plan on seeing him in the office in 2 or 3 weeks and he will be enrolled in lifelong carotid surveillance. Job ID: [id number]
== END 2019-07-29 08:20 | disposition home or self-care (01) | DRG 37 ==
LOC: SURG A 07-28 06:06 → CCU 07-28 12:30
PROVIDERS: ADMIT Thoracic Surgery (Cardiothoracic Vascular Surgery); ATTEND Thoracic Surgery (Cardiothoracic Vascular Surgery)
PROC: 03CK0ZZ Extirpation of Matter from Right Internal Carotid Artery, Open Approach (ICD-10-PCS; principal; 2019-07-28)
PROC: 03UK0KZ Supplement Right Internal Carotid Artery with Nonautologous Tissue Substitute, Open Approach (ICD-10-PCS; 2019-07-28)
PROC: 3E02340 Introduction of Influenza Vaccine into Muscle, Percutaneous Approach (ICD-10-PCS; 2019-07-28)
DX: I65.21 Occlusion and stenosis of right carotid artery (principal); I63.9 Cerebral infarction, unspecified; I61.2 Nontraumatic intracerebral hemorrhage in hemisphere, unspecified; G93.6 Cerebral edema; G81.94 Hemiplegia, unspecified affecting left nondominant side; I10 Essential (primary) hypertension; Z23 Encounter for immunization
CPT/HCPCS: 36416; 71046; 80048; 80076; 82378; 85027; 85610; 86850; 86900; 86901; 90471; 90686; 93005; 93010; 94640; G0008; J1642; J1644; J1815; J2250; J2720; J3010; J7620

== ENCOUNTER 2019-08-12 13:32 | Inpatient (IN) | payer BC ==
[2019-08-12] MEDS ORDERED: Ondansetron PF 4 MG/2 ML Vial ONE (13:46)
[2019-08-12] MEDS ORDERED: Dexamethasone 20 MG/5 ML VIAL ONE (13:46)
[2019-08-12] MEDS ORDERED: PROPOFOL 200 MG/20 ML VIAL ONE (13:46)
[2019-08-12] MEDS ORDERED: PHENYLEPHRINE-NS 100 MCG/ML 10 ML SYRINGE ONE (13:46)
[2019-08-12] MEDS ORDERED: Rocuronium Bromide 10 MG/ML (10ML VIAL) ONE (13:46)
[2019-08-12] MEDS ORDERED: Succinylcholine Chloride 20 MG/ML 10 ml SYRINGE FS ONE (13:46)
[2019-08-12] MEDS ORDERED: Lidocaine 2% PF 100 mg/5 ml Syringe ONE (13:46)
[2019-08-12] MEDS ORDERED: Heparin 5,000 UNITS/ML VIAL ONE (13:46)
[2019-08-12] MEDS ORDERED: Glycopyrrolate 0.2 MG/ML 5 ML SYRINGE ONE (13:46)
[2019-08-12] MEDS ORDERED: Nitroglycerin 2% Ointment 1 INCH/1 GM Packet ONE (14:09)
[2019-08-12 14:28] LABS: #Eosinphils 0.1 thou/uL (0.0-0.7); #Lymphocytes 1.8 thou/uL (1.20-3.40); #Monocytes 0.5 thou/uL (0.11-0.59); #Neutrophils 6.7 thou/uL (1.40-6.50); %Basophils 0.4 % (0.0-1.0); %Eosinophils 0.9 % (0.0-10.0); %Lymphocytes 19.7 % (21.0-51.0); %Monocytes 5.1 % (0.0-10.0); %Neutrophils 73.9 % (42.0-75.0); Hemoglobin 13.5 g/dL (14.0-18.0); Mean Corpuscular HGB CONC 34.8 g/dL (32.0-36.0); Mean Corpuscular Hemoglobin 30.9 pg (27.0-31.0); Mean Corpuscular Volume 88.7 fL (78.0-98.0); Mean Platelet Volume 8.4 fL (7.4-10.4); Platelet Count 214 thou/uL (130-400); RBC Distribution Width 11.7 % (11.5-14.5); Red Blood Cell (RBC) Count 4.36 mill/uL (4.70-6.10); White Blood Cell (WBC) Count 9.1 thou/uL (4.8-10.8)
[2019-08-12 14:51] LABS: ALT (SGPT) 21 U/L (8-55); AST (SGOT) 17 U/L (5-34); Albumin 4.3 g/dL (3.5-5.0); Alkaline Phosphatase 106 U/L (40-110); Anion Gap 14 mmol/L (10-20); BUN (Urea Nitrogen) 9 mg/dL (8.9-20.6); Bilirubin, Total 0.5 mg/dL (0.2-1.2); Calc. Creatinine Clearance 0 mL/min (70-130); Calcium 9.8 mg/dL (7.8-10.44); Carbon Dioxide 26 mmol/L (22-29); Chloride 102 mmol/L (98-107); Estimated GFR-MDRD Greater than 90; Globulin 3.4 g/dL (2.4-3.5); Glucose 228 mg/dL (70-105); Potassium 3.6 mmol/L (3.5-5.1); Protein, Total 7.7 g/dL (6.0-8.3); Sodium 138 mmol/L (136-145)
--- NOTE | 2019-08-12 15:04 | ULT ---
Ultrasound Doppler duplex carotid right: DATE: 08/12/2019 HISTORY: 48-year-old male with right neck swelling and palpable lump after endarterectomy 2 weeks ago. The ornamental bronze worker has documented that she notify Dr. Vázquez of the emergency Department of the finding s. TECHNIQUE: Grayscale, color-flow, and spectral analysis, of right cervical carotid artery. FINDINGS: There is a large solid-appearing mass in the soft tissues of the right neck very close to the right c arotid bifurcation, measuring approximately 5 x 4 x 5.5 cm. It has complex heterogeneous internal echoes. Although no blood flow is demonstrated within the main portion of this solid-appearing mass, there is blood flow in what appears to be a short neck probably arising from the carotid artery, leading to this mass. IMPRESSION: Large solid mass in the right neck. This could be a hematoma or thrombosed pseudoaneurysm, given the history. It appears to have a short neck that is patent, arising from carotid artery. Recommend confirmation with CT angiogram of neck with contrast.
[2019-08-12] MEDS ORDERED: Fentanyl 100 MCG/2 ML VIAL ONE ×3 (16:34→18:56)
[2019-08-12] MEDS ORDERED: Midazolam HCl 2 mg/2 ml Vial ONE (16:34)
[2019-08-12] MEDS ORDERED: Lidocaine 2% Jelly 5 ML TUBE ONE (16:49)
[2019-08-12] MEDS ORDERED: Ondansetron HCl/PF 4 MG/2 ML Vial IVP PRN (18:01)
[2019-08-12] MEDS ORDERED: Promethazine HCl 25 MG/ML VIAL IM PRN ×2 (18:01→19:23)
[2019-08-12] MEDS ORDERED: Promethazine HCl 25 MG/ML VIAL SLOW IVP PRN (18:01)
[2019-08-12] MEDS ORDERED: Sodium Chloride 0.9% 1,000 ML IV SCH (19:23)
[2019-08-12] MEDS ORDERED: Ondansetron PF 4 MG/2 ML Vial IVP PRN (19:23)
[2019-08-12] MEDS ORDERED: Dextrose 50% Abboject 50 ML SYRINGE SLOW IVP PRN (19:23)
[2019-08-12] MEDS ORDERED: Acetaminophen 325 MG TAB PO PRN (19:23)
[2019-08-12] MEDS ORDERED: Fentanyl 100 MCG/2 ML VIAL SLOW IVP PRN ×2 (19:23)
[2019-08-12] MEDS ORDERED: HYDROcodone/Acetaminophen 5/325 mg Tablet PO PRN (19:23)
[2019-08-12] MEDS ORDERED: Dextrose 5% in Water 1,000 ML IV PRN (19:23)
[2019-08-12] MEDS ORDERED: hydrALAZINE 20 MG/ML VIAL SLOW IVP PRN (19:23)
[2019-08-12] MEDS: CEFAZOLIN 2 GM in Premix Bag 1 BAG IVPB SCH ×2 (20:15→23:38)
[2019-08-12] MEDS: Amlodipine 5 MG TAB PO SCH (20:23)
[2019-08-12] MEDS: Ibuprofen 800 MG TAB PO SCH (20:23)
[2019-08-12] MEDS: Simvastatin 20 MG TAB PO SCH (20:24)
[2019-08-12] MEDS: HYDROcodone/Acetaminophen 5/325 mg Tablet PO PRN (20:38)
[2019-08-12] MEDS ORDERED: CEFAZOLIN 1 GM VIAL SLOW IVP SCH (22:00)
--- NOTE | 2019-08-12 22:19 | HP ---
HISTORY OF PRESENT ILLNESS: This is a 48-year-old gentleman who suffered a right hemispheric stroke in April and then underwent a right carotid endarterectomy 2 weeks ago. His risk factors include hypertension and dyslipidemia with no recent smoking history. Post carotid endarterectomy, he complained of some swelling in his neck and then presented to the ER today due to worsening of the swelling and pain without any respiratory symptoms. MEDICATIONS: His medicines include, 1. Aspirin. 2. Metformin 1000 b.i.d. 3. Amlodipine 10 daily. 4. Lipitor 40 at bedtime. ALLERGIES: NONE KNOWN. SOCIAL HISTORY: The patient is accompanied by 2 daughters. PHYSICAL EXAMINATION: GENERAL: Alert, cooperative gentleman, in no distress. VITAL SIGNS: , heart rate is 90. NECK: He has a tense hard hematoma on the lateral aspect of his right side of his neck. His trachea is midline. No respiratory distress. LUNGS: Clear to auscultation. CARDIAC: Resting tachycardia. Peripheral edema is absent. PLAN: At this time is for I and D of a hematoma and informed consent has been obtained. Job ID: [id number] [facility]
[2019-08-13] MEDS: HYDROcodone/Acetaminophen 5/325 mg Tablet PO PRN (06:12)
[2019-08-13] MEDS: Ibuprofen 800 MG TAB PO SCH ×3 (06:12→21:21)
[2019-08-13] MEDS: Amlodipine 5 MG TAB PO SCH ×2 (08:33→21:21)
[2019-08-13] MEDS: metFORMIN 500 MG TAB PO SCH ×2 (08:33→16:13)
[2019-08-13] MEDS: Aspirin Chewable 81 MG TAB PO SCH (08:33)
[2019-08-13] MEDS: CEFAZOLIN 2 GM in Premix Bag 1 BAG IVPB SCH ×3 (08:33→23:25)
[2019-08-13] MEDS: Insulin Regular 300 UNITS/3 ML VIAL SC PRN ×2 (12:14→16:15)
--- NOTE | 2019-08-13 14:30 | EKG ---
Test Reason : Blood Pressure : / mmHG Vent. Rate : 096 BPM Atrial Rate : 096 BPM P-R Int : 176 ms QRS Dur : 118 ms QT Int : 366 ms P-R-T Axes : 002 016 038 degrees QTc Int : 462 ms Normal sinus rhythm Inferior infarct , age undetermined Abnormal ECG Confirmed by ADRIANA FRIEND, RNEUKA ([id number]), editorial director HENNY WINTER ([id number]) on 08/13/2019 2:29:39 PM Referred By: Confirmed By:RENUKA WRIGHT MD
[2019-08-13] MEDS ORDERED: FLU VACC QS2019-20(6MOS UP)/PF 60 MCG/0.5 ML SYRINGE IM ONE (21:00)
[2019-08-13] MEDS: Simvastatin 20 MG TAB PO SCH (21:21)
[2019-08-14] MEDS: Ibuprofen 800 MG TAB PO SCH (05:27)
[2019-08-14] MEDS: CEFAZOLIN 2 GM in Premix Bag 1 BAG IVPB SCH (08:37)
[2019-08-14] MEDS: metFORMIN 500 MG TAB PO SCH (08:38)
[2019-08-14] MEDS: Amlodipine 5 MG TAB PO SCH (08:38)
[2019-08-14] MEDS: Aspirin Chewable 81 MG TAB PO SCH (08:46)
[2019-08-14] MEDS ORDERED: PROPOFOL 200 MG/20 ML VIAL ONE (11:43)
[2019-08-14] MEDS ORDERED: Lidocaine 1% PF 5 ML VIAL ONE (11:43)
[2019-08-14] MEDS ORDERED: Rocuronium Bromide 10 MG/ML (10ML VIAL) ONE (11:43)
[2019-08-14] MEDS ORDERED: Propofol 1,000 MG/100 ML VIAL IV ONE (12:39)
[2019-08-14] MEDS ORDERED: Fentanyl 250 MCG/5 ML VIAL ONE (12:41)
[2019-08-14] MEDS ORDERED: Midazolam HCl 5 mg/5 ml Vial ONE (12:41)
[2019-08-14] MEDS ORDERED: Ondansetron PF 4 MG/2 ML Vial IVP PRN (13:26)
[2019-08-14] MEDS ORDERED: Ventilator Sedation Protocol 1 EACH FS ONE (13:26)
[2019-08-14] MEDS ORDERED: Promethazine HCl 25 MG/ML VIAL IM PRN (13:26)
[2019-08-14] MEDS ORDERED: Phenylephrine HCL 10 MG, Admixture Fee 1 EACH in Sodium Chloride 0.9% 250 ML 250 ML IVPB PRN (13:26)
[2019-08-14] MEDS ORDERED: Fentanyl BOLUS 250 ML IVPB PRN (13:29)
[2019-08-14] MEDS ORDERED: Propofol BOLUS 1,000 MG/100 ML VIAL IV PRN (13:29)
[2019-08-14] MEDS ORDERED: DISCONTINUE PREVIOUS NARCOTIC PAIN MEDICATIONS AND BENZODIAZEPINES FS SCH (13:29)
[2019-08-14 13:37] LABS: Actual Bicarbonate (HCO3a) 20.8 mEq/L (22-28); Base Excess (BEa) -2.7 mEq/L (-2.0 to +3.0); CO2 Tension 31.5 mmHg (35.0-45.0); Calcium, Ionized 1.09 mmol/L (1.12-1.30); Hemoglobin (Hb) 9.7 g/dL (14.0-18.0); Potassium - ABG Lab 3.39 mmol/L (3.70-5.30); pH, Arterial 7.44 (7.35-7.45)
[2019-08-14] MEDS: Sodium Chloride 0.9% 1,000 ML IV SCH ×2 (13:39→23:40)
[2019-08-14] MEDS: fentaNYL Citrate/PF 2,000 MCG in Sodium Chloride 0.9% 60 ML IV SCH (13:41)
[2019-08-14 13:42] LABS: Puncture Site ALINE
[2019-08-14 13:43] LABS: ALV-art Gradient 174.125 (0-20)
[2019-08-14 13:48] LABS: #Eosinphils 0.1 thou/uL (0.0-0.7); #Lymphocytes 1.4 thou/uL (1.20-3.40); #Monocytes 0.3 thou/uL (0.11-0.59); %Basophils 0.7 % (0.0-1.0); %Eosinophils 1.4 % (0.0-10.0); %Lymphocytes 23.6 % (21.0-51.0); %Monocytes 4.7 % (0.0-10.0); %Neutrophils 69.6 % (42.0-75.0); Hemoglobin 9.7 g/dL (14.0-18.0); Mean Corpuscular HGB CONC 35.5 g/dL (32.0-36.0); Mean Corpuscular Hemoglobin 31.8 pg (27.0-31.0); Mean Corpuscular Volume 89.7 fL (78.0-98.0); Mean Platelet Volume 8.4 fL (7.4-10.4); Platelet Count 164 thou/uL (130-400); RBC Distribution Width 11.7 % (11.5-14.5); Red Blood Cell (RBC) Count 3.04 mill/uL (4.70-6.10); White Blood Cell (WBC) Count 5.7 thou/uL (4.8-10.8)
[2019-08-14] MEDS: Morphine 2 MG/ML SYRINGE SLOW IVP PRN (14:05)
[2019-08-14 14:06] LABS: Anion Gap 9 mmol/L (10-20); BUN (Urea Nitrogen) 8 mg/dL (8.9-20.6); Calc. Creatinine Clearance 211 mL/min (70-130); Calcium 7.6 mg/dL (7.8-10.44); Carbon Dioxide 23 mmol/L (22-29); Chloride 111 mmol/L (98-107); Estimated GFR-MDRD Greater than 90; Glucose 89 mg/dL (70-105); Potassium 3.3 mmol/L (3.5-5.1); Sodium 140 mmol/L (136-145)
[2019-08-14] MEDS: Piperacillin/Tazobactam 3.375 GM in Sodium Chloride 0.9% 100 ML IVPB SCH ×2 (16:36→23:41)
--- NOTE | 2019-08-14 19:13 | OP ---
DATE OF PROCEDURE: 08/14/2019 PREOPERATIVE DIAGNOSIS: Status post right carotid endarterectomy with hemorrhage. POSTOPERATIVE DIAGNOSIS: Status post right carotid endarterectomy with hemorrhage. PROCEDURE PERFORMED: Right neck exploration with control of suture line hemorrhage. SURGEON: Terence Dougherty MD HIGH SCALER SURGEON: Hay Smart MD ANESTHESIA: General endotracheal - Dr. Aidan Devries. ESTIMATED BLOOD LOSS: 1 L. DRAINS: None. SPECIMENS: Cultures were taken. DESCRIPTION OF PROCEDURE: While I was in the room talking to the patient, he began to cough and subsequently a large bulge appeared in his right neck, which subsequently began to drain blood very quickly. Manual pressure was held and he was emergently brought to the operating room. Dr. Devries met us in the operating room and placed the patient under general anesthesia. His neck was quickly prepped while pressure was being held over the suture line. The suture line was reopened. The wound was spread with a Weitlaner retractor. On exploration, there were two separate areas that were bleeding on the lateral suture line. The sutures appeared intact. There were no sutures that appeared torn through the carotid artery. Hemorrhage was controlled with an interrupted mattress 5-0 Prolene suture. The area, which had been previously controlled was more distal on the carotid and was intact. The wound was cultured. The wound was copiously irrigated with saline. I was fairly rough with the irrigation and with the sucker, trying to get other areas to bleed. I was not able to get anything to bleed, so I decided to reinforce the lateral suture line for its full length with interrupted 5-0 Prolene mattress sutures. At completion, there was good hemostasis. The wound was reapproximated in layers and sterile dressings applied. We will leave the patient intubated and sedated on the ventilator and will have to decide in the near future on extubation plans. Job ID: [id number] [facility]
[2019-08-14] MEDS: Propofol 1,000 MG/100 ML VIAL IV PRN (19:51)
--- NOTE | 2019-08-14 23:46 | CON ---
DATE OF CONSULTATION: HISTORY OF PRESENT ILLNESS: He is a 48-year-old gentleman who was readmitted to the hospital several days ago. He was recently discharged after he underwent a right carotid endarterectomy. He suffered a right hemispheric stroke 2 weeks before that. He is complaining of swelling in the neck, brought into the ER, worsening swelling. Daughter is at the bedside who states that he is nonsmoker, nondrinker. Today, there was worsening swelling, he had to go for an emergency surgery and is felt to have a small hole in the carotid artery. He has had a patch placed in his back in the ICU on the vent. Prior to that several days ago, he underwent some kind of a drainage procedure. PAST MEDICAL HISTORY: Previous CVA, high cholesterol, hypertension. PREVIOUS SURGERIES: Noted carotid surgery. REVIEW OF SYSTEMS: Unobtainable. PHYSICAL EXAMINATION: VITAL SIGNS: Pulse 71, blood pressure 170/70, respiratory rate 18. CHEST: No wheezing or crackles. CARDIAC: Normal S1, S2. No gallops. ABDOMEN: No masses. LABORATORY DATA: White count 5000, H and H 9 and 27, and platelet count 164. pO2 143, pCO2 . Lytes are normal. Blood sugar is 128. ASSESSMENT: 1. Status post emergency surgery for right carotid bleed. 2. Diabetes. 3. Previous cerebrovascular accident. 4. Congestive heart failure. EF is 35% at one time. 5. Hypertension, high cholesterol. PLAN: 1. He is to be vented and sedated in the next several days and wean when okay with surgery. In the meantime, start nutrition in the 24 to 48 hours. 2. Probably we will continue home medication. 3. Pulmonary will follow. 30-minute critical time. Job ID: [id number]
[2019-08-15] MEDS: Propofol 1,000 MG/100 ML VIAL IV PRN ×6 (01:41→22:23)
[2019-08-15 04:47] LABS: #Eosinphils 0.1 thou/uL (0.0-0.7); #Lymphocytes 1.9 thou/uL (1.20-3.40); #Monocytes 0.4 thou/uL (0.11-0.59); #Neutrophils 3.8 thou/uL (1.40-6.50); %Basophils 0.2 % (0.0-1.0); %Lymphocytes 30.8 % (21.0-51.0); %Monocytes 6.7 % (0.0-10.0); %Neutrophils 61.3 % (42.0-75.0); Hemoglobin 8.6 g/dL (14.0-18.0); Mean Corpuscular HGB CONC 34.9 g/dL (32.0-36.0); Mean Corpuscular Hemoglobin 31.5 pg (27.0-31.0); Mean Corpuscular Volume 90.2 fL (78.0-98.0); Mean Platelet Volume 8.5 fL (7.4-10.4); Platelet Count 148 thou/uL (130-400); RBC Distribution Width 11.8 % (11.5-14.5); Red Blood Cell (RBC) Count 2.73 mill/uL (4.70-6.10); White Blood Cell (WBC) Count 6.2 thou/uL (4.8-10.8)
[2019-08-15 05:07] LABS: Anion Gap 10 mmol/L (10-20); BUN (Urea Nitrogen) 8 mg/dL (8.9-20.6); Calc. Creatinine Clearance 182 mL/min (70-130); Calcium 7.8 mg/dL (7.8-10.44); Carbon Dioxide 23 mmol/L (22-29); Chloride 110 mmol/L (98-107); Estimated GFR-MDRD Greater than 90; Glucose 82 mg/dL (70-105); Potassium 3.3 mmol/L (3.5-5.1); Sodium 140 mmol/L (136-145)
[2019-08-15] MEDS: Piperacillin/Tazobactam 3.375 GM in Sodium Chloride 0.9% 100 ML IVPB SCH ×4 (05:22→23:40)
[2019-08-15] MEDS: Rocuronium Bromide 10 MG/ML (10ML VIAL) IVP PRN ×2 (06:03→10:37)
[2019-08-15] MEDS: fentaNYL Citrate/PF 2,000 MCG in Sodium Chloride 0.9% 60 ML IV SCH ×2 (06:22→18:22)
[2019-08-15] MEDS: Sodium Chloride 0.9% 1,000 ML IV SCH ×2 (08:53→22:23)
--- NOTE | 2019-08-15 09:42 | PRG ---
DATE OF SERVICE: 08/15/2019 SUBJECTIVE: The patient remains intubated on the vent. He is status post right carotid surgery for bleeding. OBJECTIVE: VITAL SIGNS: Pulse 76, blood pressure 117/60, sats 100%, and respirations 10. GENERAL: He is paralyzed. CHEST: Decreased breath sounds. No wheezing. CARDIAC: Normal S1 and S2. No gallops. ABDOMEN: No masses. IMAGING STUDIES: X-ray shows a questionable left-sided infiltrate. ASSESSMENT AND PLAN: Diabetic, cerebrovascular accident, right-sided carotid bleed, status post surgery emergency. Continue Zosyn. Continue supportive care, neb, wean when stable. One-half hour of critical time. Job ID: [id number]
--- NOTE | 2019-08-15 09:47 | RAD ---
FRONTAL RADIOGRAPH CHEST: DATE: 08/15/2019. COMPARISON: 07/27/2019. HISTORY: Ventilated patient. FINDINGS: There is an endotracheal tube projecting over the tracheal air column, terminating approximately 2.5 cm proximal to the carloz. No focal consolidation or alveolar edema. Mild pulmonary vascular conges tion. IMPRESSION: Endotracheal tube in place. POS: [facility]
--- NOTE | 2019-08-15 10:16 | OP ---
DATE OF PROCEDURE: 08/12/2019 PREOPERATIVE DIAGNOSIS: Large hematoma, right neck. POSTOPERATIVE DIAGNOSIS: Large hematoma, right neck. PROCEDURES PERFORMED: Evacuation of hematoma, repair of carotid endarterectomy suture line. ANESTHESIA: General. ESTIMATED BLOOD LOSS: 100 to 200. DESCRIPTION OF PROCEDURE: After adequate anesthesia had been obtained, the patient was prepped and draped. Incision was opened. There was a large amount of fairly fresh clot that was evacuated and after this had been done, there was active bleeding from the lateral aspect of the cranial 3rd of the suture line. Finger pressure was used to control this and then a Kittner was used and several 5-0 Prolene sutures were placed to control the bleeding. Following this, there was a good pulse distally. The area was thoroughly irrigated and watched for several minutes and no bleeding was found. A Clarence drain was then placed through a separate stab incision and the wound was irrigated thoroughly and closed in layers. Job ID: [id number]
[2019-08-15] MEDS: Morphine 2 MG/ML SYRINGE SLOW IVP PRN (13:56)
[2019-08-15 13:59] LABS: Actual Bicarbonate (HCO3a) 21.7 mEq/L (22-28); Analyzer IN Cardio OR; Base Excess (BEa) -2.3 mEq/L (-2.0 to +3.0); CO2 Tension 34.5 mmHg (35.0-45.0); Calcium, Ionized 1.08 mmol/L (1.12-1.30); Carboxyhemoglobin (COHb) 0.3 gm% (0.0-3.0); Hemoglobin (Hb) 11.5 g/dL (14.0-18.0); O2 Tension (PaO2) 159.3 mmHg (80.0-100.0); Potassium - ABG Lab 3.32 mmol/L (3.70-5.30); pH, Arterial 7.42 (7.35-7.45)
[2019-08-15 14:00] LABS: Puncture Site ALINE
[2019-08-15] MEDS: Nitroglycerin 50 MG/250 ML BOT 250 ML IVPB PRN ×2 (14:12→22:21)
[2019-08-15] MEDS: hydrALAZINE 20 MG/ML VIAL SLOW IVP PRN ×2 (16:52→22:39)
[2019-08-15] MEDS: Lorazepam 2 MG/ML VIAL SLOW IVP PRN ×3 (17:33→20:54)
[2019-08-15] MEDS: Acetaminophen 650 MG/20.3 ML UDCUP PER TUBE PRN (21:59)
[2019-08-15 22:22] LABS: Bacteria/HPF None Seen HPF (None Seen); Bilirubin Negative (Negative); Blood, Urine Negative (Negative); Clarity Clear (Clear); Glucose, Urine (Dipstick) Normal (Negative); Leukocyte Negative Leu/uL (Negative); Nitrite Negative (Negative); Protein, Urine (Dipstick) Negative (Neg-Trace); RBC/HPF 0-3 HPF (0-3); Squamous Epithelial 0-3 HPF (0-3); Urobilinogen Normal mg/dL (Less than 2); WBC/HPF 0-3 HPF (0-3)
[2019-08-16] MEDS ORDERED: Labetalol HCl 100 MG/20 ML VIAL SLOW IVP SCH (00:15)
[2019-08-16] MEDS: niCARdipine 25 MG in Sodium Chloride 0.9% 250 ML 240 ML IVPB SCH ×4 (00:55→20:03)
[2019-08-16] MEDS: Propofol 1,000 MG/100 ML VIAL IV PRN ×6 (04:10→23:35)
[2019-08-16] MEDS: Piperacillin/Tazobactam 3.375 GM in Sodium Chloride 0.9% 100 ML IVPB SCH ×3 (06:08→17:14)
[2019-08-16] MEDS: fentaNYL Citrate/PF 2,000 MCG in Sodium Chloride 0.9% 60 ML IV SCH ×2 (06:16→19:07)
--- NOTE | 2019-08-16 07:46 | RAD ---
Portable frontal chest radiograph: 08/16/2019 COMPARISON: 08/15/2019 HISTORY: Intubated patient FINDINGS: Positioning of the patient limits assessment of the lung bases. There appears to be new inc reased density in the left lung base suggesting left lower lobe consolidation/collapse and/or left pleural fluid. Endotracheal tube and nasogastric tube in place. Right lung appears clear. IMPRESSION: Findings suggesting nonspecific new pleural and parenchymal opacity within the left base.
[2019-08-16] MEDS: Sodium Chloride 0.9% 1,000 ML IV SCH ×2 (08:25→10:24)
--- NOTE | 2019-08-16 08:48 | PRG ---
DATE OF SERVICE: 08/16/2019 SUBJECTIVE: This morning, he remains intubated in the vent and sedated. OBJECTIVE: VITAL SIGNS: Pulse 82, blood pressure is 132\76 18. CHEST: Decreased breath sounds. No wheezing. CARDIAC: Normal S1 and S2. No gallops. ABDOMEN: No masses. LABORATORY DATA: Glucose is 146. IMPRESSION: Status post emergency right carotid surgery, left lung pneumonia, diabetes, cerebrovascular accident. Continue antibiotics, neb treatments, and supportive care. We will wean when okay with surgery. One-half hour of critical time. Job ID: [id number] [facility]
[2019-08-16] MEDS: Acetaminophen 650 MG/20.3 ML UDCUP PER TUBE PRN (19:54)
[2019-08-16] MEDS: Insulin Regular 300 UNITS/3 ML VIAL SC PRN (22:17)
[2019-08-17] MEDS: Piperacillin/Tazobactam 3.375 GM in Sodium Chloride 0.9% 100 ML IVPB SCH ×4 (00:50→17:42)
[2019-08-17] MEDS: Sodium Chloride 0.9% 1,000 ML IV SCH ×3 (02:37→21:47)
[2019-08-17] MEDS: niCARdipine 25 MG in Sodium Chloride 0.9% 250 ML 240 ML IVPB SCH (04:58)
[2019-08-17] MEDS: Lorazepam 2 MG/ML VIAL SLOW IVP PRN ×2 (06:44→07:54)
[2019-08-17] MEDS: Propofol 1,000 MG/100 ML VIAL IV PRN (07:28)
[2019-08-17] MEDS: Acetaminophen 650 MG/20.3 ML UDCUP PER TUBE PRN ×2 (07:42→14:09)
[2019-08-17] MEDS: Morphine 2 MG/ML SYRINGE SLOW IVP PRN (07:53)
[2019-08-17] MEDS: niCARdipine 50 MG in Sodium Chloride 0.9% 250 ML 230 ML IVPB SCH ×2 (08:03→11:56)
--- NOTE | 2019-08-17 09:26 | PRG ---
DATE OF SERVICE: 08/17/2019 SUBJECTIVE: This morning, he is sedated on the vent. He is day #4 following his surgery. We are going to start weaning him today. OBJECTIVE: VITAL SIGNS: Pulse 104, blood pressure 140/80, respiratory rate 18. CHEST: Bilateral rhonchi. CARDIAC: Normal S1, S2. No gallops. ABDOMEN: No masses. X-ray shows left-sided infiltrate. Emergency right carotid surgery for bleeding pneumonia. Supportive care. PT try and wean and extubate hopefully, stop all sedation and paralytics. Continue antibiotics. One-half hour of critical time. Job ID: [id number]
[2019-08-17] MEDS ORDERED: cloNIDine 0.2 MG TAB PO SCH (09:30)
--- NOTE | 2019-08-17 10:04 | RAD ---
CHEST ONE VIEW: INDICATIONS: History of intubation. COMPARISON: 08/16/2019 FINDINGS: ET tube and gastric catheter are unchanged. Cardiomegaly persists. Mild pulmonary vascular congestion and small bilateral pleural effusions, left greater than right, are stable. Left basilar parenchymal opacity is stable. No pneumothorax is evident. IMPRESSION: Stable examination. POS: OFF
[2019-08-17] MEDS: Amlodipine 10 MG TAB PO SCH (10:30)
[2019-08-17] MEDS ORDERED: ISOVUE-370 76%-LOCM 1 ML ONE (11:12)
[2019-08-17 13:15] LABS: #Lymphocytes 0.5 thou/uL (1.20-3.40); #Monocytes 0.3 thou/uL (0.11-0.59); %Basophils 0.1 % (0.0-1.0); %Eosinophils 0.5 % (0.0-10.0); %Lymphocytes 6.1 % (21.0-51.0); %Monocytes 2.9 % (0.0-10.0); %Neutrophils 90.4 % (42.0-75.0); Hemoglobin 8.7 g/dL (14.0-18.0); Mean Corpuscular HGB CONC 34.6 g/dL (32.0-36.0); Mean Corpuscular Hemoglobin 30.9 pg (27.0-31.0); Mean Corpuscular Volume 89.5 fL (78.0-98.0); Mean Platelet Volume 8.7 fL (7.4-10.4); Platelet Count 169 thou/uL (130-400); RBC Distribution Width 11.8 % (11.5-14.5); White Blood Cell (WBC) Count 8.9 thou/uL (4.8-10.8)
[2019-08-17 13:42] LABS: ALT (SGPT) 23 U/L (8-55); AST (SGOT) 22 U/L (5-34); Albumin 2.9 g/dL (3.5-5.0); Alkaline Phosphatase 72 U/L (40-110); Anion Gap 9 mmol/L (10-20); BUN (Urea Nitrogen) 4 mg/dL (8.9-20.6); Bilirubin, Total 0.6 mg/dL (0.2-1.2); Calc. Creatinine Clearance 175 mL/min (70-130); Calcium 7.9 mg/dL (7.8-10.44); Carbon Dioxide 23 mmol/L (22-29); Chloride 107 mmol/L (98-107); Estimated GFR-MDRD Greater than 90; Globulin 2.6 g/dL (2.4-3.5); Glucose 214 mg/dL (70-105); Potassium 3.1 mmol/L (3.5-5.1); Protein, Total 5.5 g/dL (6.0-8.3); Sodium 136 mmol/L (136-145)
--- NOTE | 2019-08-17 14:15 | OP ---
DATE OF PROCEDURE: 08/17/2019 PROCEDURE PERFORMED: Bronchoscopy with lavage. INDICATION: Left lower lung pneumonia and atelectasis. POSTOPERATIVE DIAGNOSES: Left lower lung pneumonia and atelectasis. DESCRIPTION OF PROCEDURE: After informed consent from the daughter, the flexible bronchoscope was then passed using an adapter on the endotracheal tube. Distal trachea was normal. Bozena was sharp. On entering the left lung, left lower lung was occluded with thick tenacious purulent secretions, which was suctioned and lavaged until completely clear. The entire left lung was lavaged with normal saline of about 40 mL. The right lung was inspected thereafter, which had very minimal amount of pus if any. Right upper and right middle lobe visualized once again without any obvious endobronchial obstruction, blood, or pus. Washings sent for Gram stain and C and S. The patient tolerated the procedure well. He was started on broad-spectrum antibiotics to cover Staph. Job ID: [id number]
--- NOTE | 2019-08-17 15:29 | CT ---
CT Brain WO Con: 08/17/2019 12:00 AM CLINICAL HISTORY: Altered mental status. COMPARISON: 05/19/2019 FINDINGS: Hemorrhage: None. Ventricular system: Normal in size and morphology for the patient's age. Cerebral parenchyma: Redemonstration of multifocal hypoattenuation most pronounced within the posteri or right cerebral hemisphere. Stable remote lacunar infarction of the left mohan radiata. Midline shift: None. Mass: No mass effect. Calvarium: Normal. Visualized Paranasal sinuses: Mild mucosal thickening of paranasal sinuses. IMPRESSION: Stable head CT, with multifocal hypoattenuation of the cerebral parenchyma, most pronounced at the po sterior right cerebral hemisphere. No interval acute intracranial hemorrhage or mass effect.
--- NOTE | 2019-08-17 16:00 | CT ---
CT CHEST WITH IV CONTRAST: HISTORY: Pleural effusion and fever. FINDINGS: There are vascular calcifications without evidence of aneurysmal dilatation of the thoracic aorta. No pericardial effusion is seen. There are small bilateral pleural effusions with consolidative changes in the lower lobes bilaterally. No pneumothoraces are seen. Endotracheal and nasogastric tubes are p resent. There are degenerative changes in the spine. Upper abdominal tomograms are unremarkable. IMPRESSION: Bilateral lower lobe consolidations with associated small pleural effusions. POS: [facility]
[2019-08-17] MEDS: Insulin Regular 300 UNITS/3 ML VIAL SC PRN ×2 (16:01→23:04)
[2019-08-17] MEDS: Linezolid 600 MG TAB PO SCH (20:55)
[2019-08-18] MEDS: Piperacillin/Tazobactam 3.375 GM in Sodium Chloride 0.9% 100 ML IVPB SCH ×4 (00:57→19:33)
[2019-08-18] MEDS ORDERED: DC Sedation Protocol FS ONE (08:10)
--- NOTE | 2019-08-18 08:27 | PRG ---
DATE OF SERVICE: 08/18/2019 SUBJECTIVE: This morning, he is awake, alert, responsive. Sedation withheld. OBJECTIVE: VITAL SIGNS: Pulse 102, blood pressure 163/68, saturations 100%, and respiratory rate 23. I's and O's have been consistently positive. His maximum temperature is 102.4 this morning. CHEST: Decreased breath sounds. No wheezing. CARDIAC: Normal S1 and S2. No gallops. ABDOMEN: No masses. IMPRESSION: Aspiration pneumonia, cerebrovascular accident, emergency right carotid surgery. PLAN: Zosyn and Zyvox on-board, neb treatments, supportive care. He will be weaned and extubated today. Continue PT, nutrition, and supportive care. Continue observation in the ICU. One-half hour of critical care time. Job ID: [id number]
[2019-08-18] MEDS: 1/2 NS w/KCL 20 mEq 1,000 ML IV SCH (10:35)
--- NOTE | 2019-08-18 13:21 | PQF ---
CLINICAL DOCUMENTATION IMPROVEMENT CLARIFICATION FORM: ICD-10 Updated PLEASE DO AN ADDENDUM TO THE PROGRESS NOTE WITH ANY DOCUMENTATION UPDATES OR ADDITIONS AND CARRY THROUGH TO DC SUMMARY. THANK YOU. DATE: 08/18/2019 ATTN: Dr. Leon Please exercise your independent, professional judgment in responding to the clarification form. Clinical indicators are provided on the bottom of this form for your review Please check appropriate box(s): HEART FAILURE: A. ACUITY [ ] Acute [ ] Acute on Chronic [ ] Chronic B. TYPE [ ] Systolic / HFrEF [ ] Diastolic / HFpEF [ ] Combined Systolic / Diastolic [ ] Hypertensive Heart Disease [ x] Other diagnosis He had an LVEF in the 30's on an echo weeks ago. He has no signs or symptoms of heart failure.___ [ ] Unable to determine In addition, please specify: Present on Admission (POA): [ ] Yes [ ] No [ ] Unable to determine For continuity of documentation, please document condition throughout progress notes and discharge summary. Thank You. CLINICAL INDICATORS - SIGNS / SYMPTOMS / LABS / RESULTS AND LOCATION IN EMR 08/14 ([place]) Congestive heart failure. EF is 35% at one time. 08/17: CT Chest: Findings: There are small bilateral pleural effusions with consolidative changes in the lower lobes bilaterally. RISKS: H&P 08/12: 48 yo who suffered a r hemispheric stroke in April and then underwent a r carotid endarterectomy 2 weeks ago. Hypertension and dyslipidemia. TREATMENT: 08/14: Critical Care Post Carotid Endarterectomy 08/14: Order Nitroglycerin 50 mg/ IV prn post carotid endarterectomy. 08/14: Hydralazine 10mg slow IVP Q6H prn Thank you, Kasey (This form is maintained as a part of the permanent medical record) 2015 [employer]. All Rights Reserved Kasey Fragoso RN, BSN [email or web address] Office: [phone] [facility]
[2019-08-18] MEDS: Linezolid 600 MG TAB PO SCH ×2 (13:50→21:34)
[2019-08-18] MEDS: Amlodipine 10 MG TAB PO SCH (13:50)
[2019-08-18] MEDS: Sodium Chloride 0.9% 1,000 ML IV SCH (20:47)
[2019-08-19] MEDS: Piperacillin/Tazobactam 3.375 GM in Sodium Chloride 0.9% 100 ML IVPB SCH ×2 (00:01→05:16)
[2019-08-19] MEDS: 1/2 NS w/KCL 20 mEq 1,000 ML IV SCH (05:15)
--- NOTE | 2019-08-19 07:54 | RAD ---
Portable frontal chest radiograph: 08/19/2019 COMPARISON: 08/17/2019 HISTORY: Pneumonia. FINDINGS: There is mild hazy increased density in the medial left lung base which may signify mild in filtrate or volume loss. Aeration within the left base has improved since the prior exam. There is hazy density noted within the right lung base which has worsened since the prior exam. The endotrache al tube and nasogastric tube have been removed. Heart and mediastinal contours are stable. IMPRESSION: Nonspecific bibasilar parenchymal opacity, right greater than left, worsened on the right and improved on the left when compared to the most recent chest radiograph.
[2019-08-19] MEDS: Cefdinir 300 MG CAP PO SCH ×2 (08:45→20:10)
[2019-08-19] MEDS: Amlodipine 10 MG TAB PO SCH (08:45)
[2019-08-19] MEDS: metFORMIN XR 500 MG TAB PO SCH ×2 (08:46→20:10)
--- NOTE | 2019-08-19 08:47 | PRG ---
DATE OF SERVICE: 08/19/2019 SUBJECTIVE: This morning, he is awake, alert, and responsive. X-ray looks better. Passive infiltrates improved. OBJECTIVE: VITAL SIGNS: Saturations are 95% on room air, temperature 98, pulse 90, blood pressure . CHEST: Decreased breath sounds. No wheezing. CARDIAC: Normal S1, S2. ABDOMEN: No masses. ASSESSMENT: 1. Status post emergency right carotid surgery. 2. Aspiration pneumonia. PLAN: 1. If improved, switch him over to oral medication. I have restarted him on his home diabetic medication. 2. PT, supportive care. 3. We will follow. Job ID: [id number]
[2019-08-19] MEDS ORDERED: METFORMIN HCL PO SCH (09:00)
[2019-08-19] MEDS: Insulin Regular 300 UNITS/3 ML VIAL SC PRN (10:59)
[2019-08-19 13:24] VITALS: BMI 26.1
[2019-08-20] MEDS: 1/2 NS w/KCL 20 mEq 1,000 ML IV SCH (00:18)
[2019-08-20] MEDS: Acetaminophen 650 MG/20.3 ML UDCUP PER TUBE PRN (07:01)
[2019-08-20] MEDS: Amlodipine 10 MG TAB PO SCH (08:27)
[2019-08-20] MEDS: metFORMIN XR 500 MG TAB PO SCH (08:27)
[2019-08-20] MEDS: Cefdinir 300 MG CAP PO SCH ×2 (08:27→20:47)
[2019-08-20] MEDS: Insulin Regular 300 UNITS/3 ML VIAL SC PRN (11:01)
--- NOTE | 2019-08-20 20:02 | PRG ---
DATE OF SERVICE: 08/20/2019 SUBJECTIVE: Matthew Rizzo did well overnight. OBJECTIVE: VITAL SIGNS: His blood pressure this afternoon is 149/85, heart rate 83, he is afebrile, respiratory rate 18, oximetry is 100%. GENERAL: He had no complaints when I questioned him in [place]. He is in no distress. His incision is without erythema. LUNGS: Clear. HEART: Regular rhythm. S1 and S2 are normal. ABDOMEN: Soft and nontender. IMPRESSION: 1. Status post emergent operative procedure for neck hemorrhage after carotid endarterectomy. He is clinically stable to move out of the Critical Care Unit in my opinion. 2. History of aspiration pneumonitis. 3. History of cerebrovascular accident. 4. He is on p.o. antimicrobial therapy. He can be discharged on Omnicef to complete 10 to 14 days total of antibiotics. We will sign off when he transfers out of the Critical Care Unit. Job ID: [id number]
[2019-08-21 08:29] VITALS: TEMP 98.5
[2019-08-21 08:33] VITALS: BP 130/79
[2019-08-21] MEDS: Cefdinir 300 MG CAP PO SCH (08:34)
[2019-08-21] MEDS: Amlodipine 10 MG TAB PO SCH (08:34)
--- NOTE | 2019-08-22 03:13 | DIS ---
DATE OF ADMISSION: 08/12/2019 DATE OF DISCHARGE: 08/21/2019 PRINCIPAL DIAGNOSIS: Bleeding status, post right carotid endarterectomy and bovine pericardial patch angioplasty. SECONDARY DIAGNOSES: Recurrent bleeding status post carotid endarterectomy, pneumonia. PROCEDURES PERFORMED: Evacuation of hematoma and repair of carotid endarterectomy suture line 08/12/2019, right neck exploration with controlled suture line hemorrhage 08/14/2019, fiberoptic bronchoscopy with bronchial alveolar lavage 08/17/2019. HISTORY OF PRESENT ILLNESS AND HOSPITAL COURSE: The patient is a 48-year-old man, who had been electively readmitted off Plavix to undergo a right carotid endarterectomy for symptomatic right carotid stenosis. About two weeks earlier, he had sudden onset of pain and swelling in his right neck. He was taken to the operating room and found to have bleeding along the lateral aspect of the distal suture line, which was controlled with prolene sutures. Two days later, very shortly after his Clarence drain was removed, he coughed and began bleeding through the drain site. On exploration, there was bleeding from the lateral suture line without any obvious breakage of sutures or sutures having pulled through. This bleeding area was controlled with interrupted mattress sutures of 5-0 Prolene, although no other areas even with attempts to cause bleeding were bleeding because no obvious explanation for this recurrent bleeding was identified. The entire suture line was reinforced with mattress sutures. He was left intubated. He developed high fevers. He had already been started on Zyvox after his second operation empirically should infection be playing any role. He developed pulmonary infiltrates consistent with pneumonia and while it was difficult to identify causative organism, the BAL was productive of turbid yellow fluid that really only grew normal maryam. He was started on Zyvox for increased staphylococcal coverage and began to defervesce. He was extubated after several days, switched over from IV antibiotics to oral Omnicef and remained afebrile. His initial dramatic deconditioning rapidly improved after extubating him and beginning immobilization. He is now being discharged home to take another week of Omnicef. Job ID: [id number]
== END 2019-08-21 11:00 | disposition home or self-care (01) | DRG 907 ==
LOC: ERS 13:32 → 2SE 15:35 → SJJU 19:26 → CCU 08-14 13:26 → 2SE 08-20 15:03
PROVIDERS: ADMIT Thoracic Surgery (Cardiothoracic Vascular Surgery); ATTEND Thoracic Surgery (Cardiothoracic Vascular Surgery)
PROC: 0W360ZZ Control Bleeding in Neck, Open Approach (ICD-10-PCS; principal; 2019-08-14)
PROC: 0B9L8ZX Drainage of Left Lung, Via Natural or Artificial Opening Endoscopic, Diagnostic (ICD-10-PCS; 2019-08-17)
DX: L76.22 Postprocedural hemorrhage of skin and subcutaneous tissue following other procedure (principal); J18.9 Pneumonia, unspecified organism; J98.11 Atelectasis; Y83.8 Other surgical procedures as the cause of abnormal reaction of the patient, or of later complication, without mention of misadventure at the time of the procedure; E11.9 Type 2 diabetes mellitus without complications; I10 Essential (primary) hypertension; Z86.73 Personal history of transient ischemic attack (TIA), and cerebral infarction without residual deficits
CPT/HCPCS: 36415; 36416; 70450; 71045; 71260; 76536; 80048; 80053; 81001; 82805; 85025; 86850; 86900; 86901; 87040; 87070; 87205; 93005; 94002; 94003; 94640; J0360; J0690; J1100; J1644; J1815; J2001; J2060; J2250; J2270; J2405; J2543; J2704; J3010; J3480; J3490; J7050; J7620; Q9966